=== PATIENT | female | born 1985 | race African-American/Black ===

== ENCOUNTER 2020-11-11 14:10 | Emergency (ER) | payer SELFPAY ==
[~2020-11-11] VITALS: Ht 170.2 cm; Wt 59.9 kg
[2020-11-11] MEDS ORDERED: CEFDINIR300 MG PO (15:06)
== END 2020-11-11 15:00 | disposition home or self-care (01) ==
LOC: FSED 14:16
DX: N30.00 Acute cystitis without hematuria (principal); R30.0 Dysuria; R53.1 Weakness; R10.30 Lower abdominal pain, unspecified
CPT/HCPCS: 80053; 81003; 81025; 85025; 99283

== ENCOUNTER 2024-05-09 10:11 | Emergency (ER) | payer SELFPAY ==
[~2024-05-09] VITALS: Ht 170.2 cm; Wt 59.9 kg
[~2024-05-09 10:11] MED LIST: CEFDINIR300 MG PO
[2024-05-09 10:22] VITALS: PULSE 88; RESP 15; TEMP 97.8; O2SAT 100
[2024-05-09 10:35] LABS: BASOPHILS # (AUTO) 0.1 (0.0-0.1); BASOPHILS % 1.2 % (0.0-1.0); EOSINOPHILS # (AUTO) 0.1 (0.0-0.4); EOSINOPHILS % 1.8 % (0.0-6.0); HEMATOCRIT 41.9 % (34.2-44.1); HEMOGLOBIN 13.6 g/dL (12.0-16.0); LYMPHOCYTES # (AUTO) 3.2 (1.0-3.2); MEAN CORPUSCULAR HEMOGLOBIN 30.1 pg (28-32); MEAN CORPUSCULAR HGB CONC 32.5 g/dL (31-35); MEAN CORPUSCULAR VOLUME 92.7 fL (81-99); MONOCYTES # (AUTO) 0.4 (0.2-0.8); MONOCYTES % 7.9 % (4.4-11.3); NEUTROPHILS # (AUTO) 1.2 (2.1-6.9); NEUTROPHILS % 23.7 % (38.7-80.0); PLATELET COUNT 270 x10e3/uL (140-360); RED BLOOD COUNT 4.52 x10e6/uL (3.6-5.1); RED CELL DISTRIBUTION WIDTH 12.8 % (11.7-14.4); WHITE BLOOD COUNT 4.91 x10e3/uL (4.8-10.8)
[2024-05-09 10:37] LABS: BILIRUBIN,URINE NEGATIVE (NEGATIVE); CLARITY,URINE SL CLOUDY (CLEAR); COLOR,URINE YELLOW (YELLOW); GLUCOSE, URINE NEGATIVE (NEGATIVE); KETONES,URINE NEGATIVE (NEGATIVE); LEUKOCYTE ESTERASE ,URINE NEGATIVE (NEGATIVE); NITRITE,URINE NEGATIVE (NEGATIVE); PH,URINE 6 (5 - 7); PROTEIN,URINE DIPSTICK NEGATIVE (NEGATIVE); URINE UROBILINOGEN 0.2 mg/dL (0.2 - 1)
[2024-05-09] MEDS: SODIUM CHLORIDE 0.9% 1000ML 1,000 ML IV STA (10:38)
[2024-05-09] MEDS: ONDANSETRON HCL INJ 2MG/ML 2ML 2 MG/ML VIAL IV STA (10:39)
[2024-05-09 10:51] LABS: BACTERIA,URINE MODERATE /HPF; EPITHELIAL CELLS,URINE MODERATE /LPF
[2024-05-09 10:51] LABS: ANION GAP 14.7 mmol/L (8-16); BLOOD UREA NITROGEN 8 mg/dL (7-26); BUN/CREATININE RATIO 7 (6-25); CALCIUM 9.7 mg/dL (8.4-10.2); CARBON DIOXIDE 21 mmol/L (22-29); CHLORIDE 109 mmol/L (98-107); CREATININE, SERUM 1.15 mg/dL (0.57-1.11); EST GLOMERULAR FILTRATION RATE 63 ML/MIN (>=60); GLUCOSE 78 mg/dL (74-118); POTASSIUM 3.7 mmol/L (3.5-5.1); SODIUM 141 mmol/L (136-145)
[2024-05-09 10:58] LABS: HCG,QUANTITATIVE < 1.20 mIU/mL (0-10)
== END 2024-05-09 11:40 | disposition home or self-care (01) ==
LOC: ER 10:16
DX: O02.1 Missed abortion (principal); R11.0 Nausea
CPT/HCPCS: 36415; 80048; 81001; 84702; 85025; 99283; J2405; J7030

== ENCOUNTER 2024-10-09 22:14 | Emergency (ER) | payer OTHER ==
[~2024-10-09] VITALS: Ht 170.2 cm; Wt 74.8 kg
[2024-10-09 22:28] VITALS: PULSE 77; RESP 26; TEMP 98.2
[2024-10-09 22:58] LABS: AMPHETAMINES SCREEN,URINE NEGATIVE (NEGATIVE); BENZODIAZEPINES SCREEN,URINE NEGATIVE (NEGATIVE); BILIRUBIN,URINE NEGATIVE (NEGATIVE); CANNABINOIDS SCREEN,URINE NEGATIVE (NEGATIVE); CLARITY,URINE CLEAR (CLEAR); COCAINE SCREEN,URINE NEGATIVE (NEGATIVE); COLOR,URINE YELLOW (YELLOW); GLUCOSE, URINE NEGATIVE (NEGATIVE); KETONES,URINE NEGATIVE (NEGATIVE); LEUKOCYTE ESTERASE ,URINE NEGATIVE (NEGATIVE); METHADONE SCREEN, URINE NEGATIVE (NEGATIVE); NITRITE,URINE NEGATIVE (NEGATIVE); OPIATES SCREEN,URINE NEGATIVE (NEGATIVE); PH,URINE 6 (5 - 7); PHENCYCLIDINE SCREEN,URINE NEGATIVE (NEGATIVE); PROTEIN,URINE DIPSTICK NEGATIVE (NEGATIVE); RBC,URINE 0-5 /HPF (0-5); URINE UROBILINOGEN 0.2 mg/dL (0.2 - 1); WBC,URINE (MAN) 0-5 /HPF (0-5)
[2024-10-09 22:59] LABS: EPITHELIAL CELLS,URINE FEW /LPF; PREGNANCY TEST, URINE NEGATIVE (NEGATIVE)
[2024-10-09 23:23] LABS: BACTERIA,URINE MODERATE /HPF; MUCUS,URINE MANY (RARE)
[2024-10-09] MEDS ORDERED: CEPHALEXIN500 MG PO (23:28)
[2024-10-09 23:31] VITALS: BP 150/107; O2SAT 100
== END 2024-10-09 23:32 | disposition home or self-care (01) ==
LOC: ER 22:20
DX: N39.3 Stress incontinence (female) (male) (principal); F41.9 Anxiety disorder, unspecified
CPT/HCPCS: 80307; 81001; 81025; 87086; 99283